=== PATIENT | female | born 1990 | race Hispanic/Latino ===

== ENCOUNTER 2023-12-06 21:14 | Observation (INO) | payer OTHER, SELFPAY ==
[2023-12-06] MEDS ORDERED: Morphine 2 MG/ML VIAL SLOW IVP PRN (22:39)
[2023-12-06] MEDS ORDERED: Ondansetron PF 4 MG/2 ML Vial IVP PRN (22:40)
[2023-12-06] MEDS: Acetaminophen 325 MG TAB PO PRN (23:06)
[2023-12-06] MEDS: Lactated Ringer's 1,000 ML IV SCH (23:08)
[2023-12-07] MEDS: Potassium Chloride 10 MEQ in Premix 1 BAG IVPB SCH (00:20)
[2023-12-07 03:58] LABS: #Basophils 0.03 10x3/uL (0.0-0.2); #Eosinphils 0.07 10x3/uL (0.0-0.5); #Monocytes 0.45 10x3/uL (0.0-1.1); #Neutrophils 7.13 10x3/uL (1.5-8.4); %Basophils 0.3 % (0.0-2.0); %Eosinophils 0.7 % (0.0-6.0); %Lymphocytes 19.8 % (18.0-47.0); %Monocytes 4.7 % (0.0-10.0); Hematocrit 27.7 % (34.9-44.5); Mean Corpuscular HGB CONC 36.1 g/dL (32.0-36.0); Mean Corpuscular Hemoglobin 33.1 pg (27.0-33.0); Mean Corpuscular Volume 91.7 fL (81.6-98.3); Mean Platelet Volume 10.4 fL (7.4-10.4); Platelet Count 243 10x3/uL (150-450); Red Blood Cell (RBC) Count 3.02 10x6/uL (3.90-5.03); White Blood Cell (WBC) Count 9.6 10x3/uL (3.5-10.5)
[2023-12-07 04:12] LABS: ALT (SGPT) 11 U/L (8-55); AST (SGOT) 16 U/L (5-34); Alkaline Phosphatase 43 U/L (40-110); Anion Gap 13 mmol/L (10-20); BUN (Urea Nitrogen) 4 mg/dL (7.0-18.7); Bilirubin, Total 0.3 mg/dL (0.2-1.2); Calc. Creatinine Clearance 0 mL/min (70-130); Calcium 8.3 mg/dL (7.8-10.44); Carbon Dioxide 21 mmol/L (22-29); Chloride 105 mmol/L (98-107); Estimated GFR 119; Globulin 2.8 g/dL (2.4-3.5); Glucose 97 mg/dL (70-105); Potassium 3.7 mmol/L (3.5-5.1); Protein, Total 5.8 g/dL (6.0-8.3); Sodium 135 mmol/L (136-145)
[2023-12-07 05:17] VITALS: BMI 29.5
[2023-12-07] MEDS: Doxycycline 100 MG CAP PO SCH (11:23)
[2023-12-07 16:28] VITALS: BP 108/65; TEMP 98.8
== END 2023-12-07 17:40 | disposition home or self-care (01) ==
LOC: CSHPP 22:13
PROVIDERS: ADMIT Obstetrics & Gynecology; ATTEND Obstetrics & Gynecology
PROC: 10D17ZZ Extraction of Products of Conception, Retained, Via Natural or Artificial Opening (ICD-10-PCS; principal; 2023-12-07)
DX: O03.4 Incomplete spontaneous abortion without complication (principal); O03.33 Metabolic disorder following incomplete spontaneous abortion; E87.6 Hypokalemia
CPT/HCPCS: 36415; 76856; 80053; 84702; 85025; 88305; 96374; G0378; J3480; J7120